=== PATIENT | male | born 1980 | race Two or more races ===

== ENCOUNTER 2018-03-06 11:22 | Emergency (ER) | payer OTHER ==
[~2018-03-06] VITALS: Ht 180.3 cm; Wt 79.8 kg
[2018-03-06] MEDS ORDERED: ALPRAZOLAM1 MG (11:44)
== END 2018-03-06 14:06 | disposition home or self-care (01) ==
LOC: ER 11:22
DX: M94.0 Chondrocostal junction syndrome [Tietze] (principal)